=== PATIENT | male | born 1995 | race Hispanic/Latino ===

== ENCOUNTER 2018-01-20 06:48 | Emergency (ER) | payer OTHER ==
[~2018-01-20] VITALS: Ht 167.6 cm; Wt 77.1 kg
[2018-01-20 08:11] VITALS: BP 141/85
== END 2018-01-20 08:23 | disposition home or self-care (01) ==
LOC: ER 06:48
DX: T78.3XXA Angioneurotic edema, initial encounter (principal)
CPT/HCPCS: 99282

== ENCOUNTER 2018-06-28 11:30 | Emergency (ER) | payer OTHER ==
[~2018-06-28] VITALS: Ht 167.6 cm; Wt 77.1 kg
== END 2018-06-28 12:00 | disposition left against medical advice (07) ==
LOC: ER 11:30
DX: R60.9 Edema, unspecified (principal)